=== PATIENT | female | born 1980 ===

== ENCOUNTER 2023-06-19 12:27 | Emergency (ER) | payer OTHER, SELFPAY ==
[2023-06-19 12:50] VITALS: BP 164/100; PULSE 86; RESP 18; TEMP 36.7; O2SAT 100; BMI 29.0
--- NOTE | 2023-06-19 12:55 | ECG_ITS ---
Test Reason : DIZZINESS Blood Pressure : / mmHG Vent. Rate : 081 BPM Atrial Rate : 081 BPM P-R Int : 116 ms QRS Dur : 080 ms QT Int : 358 ms P-R-T Axes : 047 020 029 degrees QTc Int : 415 ms Normal sinus rhythm with sinus arrhythmia Normal ECG No previous ECGs available Referred By: Generic ED Physician Electronically Signed By:XAVIER BIRD
[2023-06-19 13:14] LABS: Baso%MD 0.4 %; Eos%MD 0.8 %; Hematocrit 36.5 % (37.0-47.0); Hemoglobin 12.4 g/dl (12.0-16.0); IG%MD 0.3 %; Lymph%MD 21.5 %; Mean Corpuscular Hemoglobin 32.3 pg (27.0-33.0); Mean Corpuscular Volume 95.1 fL (80.0-98.0); Mono%MD 5.9 %; Neut%MD 71.1 %; Platelet Count 263 X10*3/uL (160-400); Red Blood Count 3.84 X10*6/uL (4.20-5.50); Red Cell Distribution Width 12.2 % (11.0-16.0)
[2023-06-19 13:23] LABS: D Dimer High Sensitivity < 150 NG/ML
[2023-06-19 13:26] LABS: Anion Gap 14 (12-20); Blood Urea Nitrogen 9 mg/dL (9-16); Calcium 8.8 mg/dL (8.4-10.2); Carbon Dioxide 22 mmol/L (22-29); Chloride 107 mmol/L (96-108); Creatinine Clr Calc Pharmacy 110.8; Estimated Glomerular Filt Rate > 60; Glucose Random 89 mg/dL (60-115); Potassium 4.1 mmol/L (3.3-5.1); Sodium 139 mmol/L (135-145)
[2023-06-19 13:54] LABS: Atypical Lymph Absolute Manual 0.1 x10*3/uL; Atypical Lymphs Percent Manual 1 % (0-6); Band Neutrophils Percent 0 % (3-5); Basophils Abs Manual 0.1 X10*3/uL (0.0-0.2); Basophils Percent Manual 1 % (0-2); Eosinophils Absolute Manual 0.1 X10*3/uL (0.0-0.4); Eosinophils Percent Manual 1 % (0-4); Lymphocytes Absolute Manual 1.7 X10*3/uL (1.2-4.9); Lymphocytes Percent Manual 19 % (20-40); Monocytes Absolute Manual 0.2 X10*3/uL (0.1-1.2); Monocytes Percent Manual 2 % (2-11); Neutrophils Absolute Manual 6.8 X10*3/uL (2.0-8.3); Neutrophils Percent Manual 76 % (45-73)
[2023-06-19 13:56] LABS: Platelet Estimate NORMAL (NORMAL); Platelet Morphology Comment NORMAL; RBC Morphology NORMAL
--- NOTE | 2023-06-19 19:35 | ED.GENADULT ---
HPI - General Adult General Chief complaint: Dizziness Stated complaint: dizzy, blurry vision on one side, high BP Time Seen by Provider: 06/19/23 19:12 Source: patient Mode of arrival: ambulatory Limitations: no limitations History of Present Illness HPI narrative: Patient with no significant past medical history to travel to came back 3 days ago complaining of swelling of the legs without any pain no shortness of breath no abdominal distension check the blood pressure was elevated to 164/120 denies any liver disease but she had alcohol in the trip. No chest pain no palpitation no kidney problems in the past recheck blood pressure 181/104 patient had physical in 04/09 with normal labs and blood pressure patient had preeclampsia at 20 years ago Related Data Previous Rx's Medication Instructions Recorded hydrochlorothiazide 50 mg tablet 50 mg PO QAM #30 tabs 06/19/23 Allergies Allergy/AdvReac Type Severity Reaction Status Date / Time COLD WATER ORWEATHER Allergy Unknown RASH/HIVES Uncoded 08/04/20 17:06 From Reglan Allergy Unknown SEIZURES Uncoded 08/04/20 17:06 OYSTERS Allergy Unknown HIVES Uncoded 08/04/20 17:06 Review of Systems Review of Systems: Yes all other systems are reviewed and are negative PMFSH Social History Social History Advance Directives: No Advance Directives Information Provided: No Physical Exam ED Vital Signs: Vital Signs - 24 hr 06/19/23 12:50 06/19/23 19:55 06/19/23 21:31 Temperature 98.0 F 97.8 F Pulse Rate 86 76 74 Respiratory Rate 18 16 Blood Pressure 164/100 H 171/97 H 144/95 H Pulse Oximetry 100 100 Oxygen Delivery Method Room Air Room Air BMI result Body Mass Index 29.0 Appearance: Alert. Oriented X3. No acute distress. Eyes: PERRLA, No Nystagmus ENT: Pharynx normal. Oral Mucosa moist Neck: Normal inspection. Neck supple. CVS: Normal heart rate and rhythm. Pulses normal. Respiratory: No respiratory distress. Equal air entry bilateral, no wheezing/rales/rhonchi Abdomen: Soft and nontender. Bowel sounds are present, no mass palpable, no CVA tenderness Skin: Skin warm and dry. Normal skin color. Normal skin turgor. Extremities: Nonpitting lower extremity edema. No calf tenderness Neuro: Oriented X 3. No motor deficit. Medications Administered Discontinued Medications Generic Name Dose Route Start Last Admin Trade Name Paxton PRN Reason Stop Dose Admin Hydrochlorothiazide 25 mg 06/19/23 19:51 06/19/23 20:09 Hydrochlorothiazide 25 Mg Tablet PO 06/19/23 19:52 25 mg ONCE ONE Administration Protocol Medical Decision Making Medical Decision Making [facility] Narrative: Patient history of dependent edema in the past comes here for increased edema noticed to have high blood pressure labs are stable be start patient on hydrochlorothiazide advised to follow up with Nephrology Lab Data [facility] Lab Attestation statement: I reviewed the patient's lab results. 06/19/23 13:08 06/19/23 13:08 Labs: Lab Results 06/19/23 06/19/23 06/19/23 Range/Units 13:08 13:08 13:08 WBC 9.0 (4.8-10.8) X10*3/uL RBC 3.84 L (4.20-5.50) X10*6/uL Hgb 12.4 (12.0-16.0) g/dl Hct 36.5 L (37.0-47.0) % MCV 95.1 (80.0-98.0) fL MCH 32.3 (27.0-33.0) pg MCHC 34.0 (31.0-35.0) g/dl RDW 12.2 (11.0-16.0) % Plt Count 263 (160-400) X10*3/uL MPV 10.0 (9.4-12.3) fL Absolute Nucleated RBC 0.000 (0.0-0.012) X10*3/uL Nucleated RBC % (auto) 0.0 (0.0-0.2) /100WBC Neutrophils % (Manual) 76 H (45-73) % Band Neutrophils % 0 L (3-5) % Lymphocytes % (Manual) 19 L (20-40) % Atypical Lymphs % (Man) 1 (0-6) % Monocytes % (Manual) 2 (2-11) % Eosinophils % (Manual) 1 (0-4) % Basophils % (Manual) 1 (0-2) % Abs Neuts (Manual) 6.8 (2.0-8.3) X10*3/uL Lymphocytes # (Manual) 1.7 (1.2-4.9) X10*3/uL Atyp Lymphs # (Manual) 0.1 x10*3/uL Monocytes # (Manual) 0.2 (0.1-1.2) X10*3/uL Eosinophils # (Manual) 0.1 (0.0-0.4) X10*3/uL Basophils # (Manual) 0.1 (0.0-0.2) X10*3/uL Platelet Estimate NORMAL (NORMAL) Plt Morphology Comment NORMAL RBC Morphology NORMAL D-Dimer High Sensitivty < 150 NG/ML Sodium 139 (135-145) mmol/L Potassium 4.1 (3.3-5.1) mmol/L Chloride 107 (96-108) mmol/L Carbon Dioxide 22 (22-29) mmol/L Anion Gap 14 (12-20) BUN 9 (9-16) mg/dL Creatinine 0.70 (0.5-1.4) mg/dL Estim Creat Clear Calc 110.8 Estimated GFR > 60 Random Glucose 89 (60-115) mg/dL Calcium 8.8 (8.4-10.2) mg/dL COVID-19 (MOLLY) (Negative) COVID-19 Clin Com 06/19/23 Range/Units 19:54 WBC (4.8-10.8) X10*3/uL RBC (4.20-5.50) X10*6/uL Hgb (12.0-16.0) g/dl Hct (37.0-47.0) % MCV (80.0-98.0) fL MCH (27.0-33.0) pg MCHC (31.0-35.0) g/dl RDW (11.0-16.0) % Plt Count (160-400) X10*3/uL MPV (9.4-12.3) fL Absolute Nucleated RBC (0.0-0.012) X10*3/uL Nucleated RBC % (auto) (0.0-0.2) /100WBC Neutrophils % (Manual) (45-73) % Band Neutrophils % (3-5) % Lymphocytes % (Manual) (20-40) % Atypical Lymphs % (Man) (0-6) % Monocytes % (Manual) (2-11) % Eosinophils % (Manual) (0-4) % Basophils % (Manual) (0-2) % Abs Neuts (Manual) (2.0-8.3) X10*3/uL Lymphocytes # (Manual) (1.2-4.9) X10*3/uL Atyp Lymphs # (Manual) x10*3/uL Monocytes # (Manual) (0.1-1.2) X10*3/uL Eosinophils # (Manual) (0.0-0.4) X10*3/uL Basophils # (Manual) (0.0-0.2) X10*3/uL Platelet Estimate (NORMAL) Plt Morphology Comment RBC Morphology D-Dimer High Sensitivty NG/ML Sodium (135-145) mmol/L Potassium (3.3-5.1) mmol/L Chloride (96-108) mmol/L Carbon Dioxide (22-29) mmol/L Anion Gap (12-20) BUN (9-16) mg/dL Creatinine (0.5-1.4) mg/dL Estim Creat Clear Calc Estimated GFR Random Glucose (60-115) mg/dL Calcium (8.4-10.2) mg/dL COVID-19 (MOLLY) Negative (Negative) COVID-19 Clin Com See Note Discharge Plan Discharge Clinical Impression: Dependent edema, Hypertension Patient Disposition: Home, Self-Care Instructions: Leg Edema (ED), Hypertension (ED) Additional Instructions: Cause of hypertension not very clear likely idiopathic decrease salt intake Start taking water pill as prescribed which will help in the swelling of the legs and blood pressure Check blood pressure twice daily should be less than 140/90 [facility] with [facility] Prescriptions: New hydrochlorothiazide 50 mg tablet 50 mg PO QAM Qty: 30 0RF Referrals: Jeremías Anand MD [Physician] - 1 week Interventions: ED Discharge Assessment Last Done: 06/19/23 21:31 Discharge Date/Time: 06/19/23 21:32
[2023-06-19 19:55] VITALS: BP 171/97; PULSE 76; RESP 16; TEMP 36.6; O2SAT 100
[2023-06-19] MEDS: hydroCHLOROthiazide 25 MG TABLET PO (20:09)
[2023-06-19 20:31] LABS: COVID-19 Test Negative (Negative); IDNOW Serial# 6674DD1D
[2023-06-19 21:31] VITALS: BP 144/95; PULSE 74
== END 2023-06-19 21:32 | disposition home or self-care (01) ==
PROVIDERS: Emergency Provider Internal Medicine
DX: R60.0 Localized edema (principal); R42 Dizziness and giddiness; I10 Essential (primary) hypertension; I49.8 Other specified cardiac arrhythmias; H53.8 Other visual disturbances; Z20.822 Contact with and (suspected) exposure to COVID-19; Z20.828 Contact with and (suspected) exposure to other viral communicable diseases; Z79.899 Other long term (current) drug therapy
CPT/HCPCS: 36415; 80048; 85007; 85027; 85379; 87635; 93005; 99283; 99284

== ENCOUNTER → 2023-06-19 12:55 | Outpatient (BNV) | payer OTHER, SELFPAY | PROVIDERS: Emergency Provider Internal Medicine; Visit Provider Internal Medicine | DX: I49.9 Cardiac arrhythmia, unspecified (principal) | CPT/HCPCS: 93010 ==